=== PATIENT | female | born 2005 | race Caucasian/White ===

== ENCOUNTER 2025-02-06 01:51 | Emergency (ER) | payer BC | END 2025-02-06 02:32 | LOC: DL.ED 01:51 | DX: R60.0 Localized edema (principal) | CPT/HCPCS: 99284 ==

== ENCOUNTER 2025-04-17 18:22 | Emergency (ER) | payer BC ==
[2025-04-17] MEDS ORDERED: Sodium Chloride 0.9% 10 ML Syringe FLUSH PRN (18:47)
[2025-04-17 19:14] LABS: RED BLOOD CELL COUNT 2.05 10^6/uL (4.2-5.4)
[2025-04-17 19:21] LABS: WHITE BLOOD CELL COUNT,WBC 0.8 10^3/uL (5.0-10.0)
[2025-04-17 19:22] LABS: LYMPHOCYTES PERCENT AUTO 23.8 % (20.5-50.1); MONOCYTES PERCENT AUTO 30.0 % (2-8); NEUTROPHILS PERCENT AUTO 44.9 % (42.2-75.2); PLATELET COUNT,PLT 15 10^3/uL (150-450)
[2025-04-17 19:23] LABS: BASOPHILS PERCENT AUTO 0.0 % (0.0-1.0); EOSINOPHILS PERCENT AUTO 1.3 % (1.0-3.0)
[2025-04-17 19:31] LABS: INR 1.0 (0.9-1.2); PTT,PARTIAL THROMBOPLSTIN TIME 25.1 SEC (22.0-34.0)
[2025-04-17 19:34] LABS: A/G RATIO 1.0; ALANINE AMINOTRANSFERASE,ALT 86.0 U/L (14-59); ASPARTATE AMNIOTRANSFERASE,AST 18.0 U/L (15-37); BILIRUBIN TOTAL 0.2 mg/dL (0.2-1.0); BLOOD UREA NITROGEN,BUN 5.0 mg/dL (7-18); CARBON DIOXIDE,CO2 29.0 mmol/L (21-32); CHLORIDE,CL 103.0 mmol/L (98-107); CREATININE 0.85 mg/dL (0.55-1.02); EST CRCL DRUG DOSING (CG) 102.67 mL/min; ESTIMATED GFR 101.0 mL/min (>=60); GLUCOSE RANDOM 111.0 mg/dL (70-99); POTASSIUM,K 3.6 mmol/L (3.5-5.1); PROTEIN TOTAL,TP 7.3 g/dL (6.4-8.2); SODIUM,NA 141.0 mmol/L (136-145)
[2025-04-17 19:37] LABS: LACTIC ACID 1.6 mmol/L (0.4-2.0)
[2025-04-17 19:58] LABS: BAND PERCENT MAN 4 %; LYMPHOCYTES PERCENT MAN 22 % (20-50); MONOCYTES PERCENT MAN 28 % (2-8); SEG NEUTROPHILS PERCENT MAN 46 % (42-75)
[2025-04-17 19:59] LABS: ELLIPTOCYTES 2+ MODERATE; EOSINOPHILS PERCENT MAN 0 % (1-3)
[2025-04-17 20:03] LABS: TEARDROP CELLS 2+ MODERATE
== END 2025-04-17 22:34 ==
LOC: DL.ED 18:22
DX: D61.810 Antineoplastic chemotherapy induced pancytopenia (principal); C76.42 Malignant neoplasm of left upper limb
CPT/HCPCS: 36415; 70450; 80053; 83605; 83735; 85025; 85610; 85730; 86140; 86850; 86900; 86901; 86920; 86922; 87040; 87428-QW; 99285